=== PATIENT | male | born 1950 | race Caucasian/White ===

== ENCOUNTER 2017-01-30 00:23 | Emergency (ER) | payer MEDICARE, OTHER ==
[~2017-01-30] VITALS: Ht 185.4 cm; Wt 85.8 kg
[2017-01-30 00:28] VITALS: BP 133/82; PULSE 78; RESP 14; TEMP 97.6; O2SAT 94
[2017-01-30 00:41] VITALS: BP 133/82; PULSE 78; RESP 14; TEMP 97.6; O2SAT 95
[2017-01-30] MEDS ORDERED: ATOR10TA15 PO (00:46)
[2017-01-30] MEDS ORDERED: PROP1TAB (00:46)
[2017-01-30 00:47] VITALS: BP 133/82; PULSE 78; RESP 15; TEMP 97.6; O2SAT 95
--- NOTE | 2017-01-30 02:12 | PD ---
HPI Chief Complaint: Skin Problem Time Seen by Provider: 02:06 Travel History International Travel<30 days: No Contact w/Intl Traveler<30days: No Traveled to known affect area: No History of Present Illness HPI The patient is a 66-year-old male that apparently was on doxycycline and severely sunburned his left foot 10 days ago. He noticed that he has some blisters forming on his left foot. PFSH Past Medical History Heart Rhythm Problems: Yes (2011 ablation for A-F-ib) Diminished Hearing: No Tetanus Vaccination: < 5 Years Influenza Vaccination: Yes Past Surgical History Eye Surgery: Yes (Lasik ) Joint Replacement: Yes (Left Shoulder ) Other Surgery: Yes (Right Thumb, Left Toe) Social History Alcohol Use: Yes (every day 3 beers) Tobacco Use: No Substance Use: No Allergies-Medications (Allergen,Severity, Reaction): Coded Allergies: Penicillin (Verified Allergy, Unknown, 01/30/17) Reported Meds & Prescriptions Reported Meds & Active Scripts Active Reported Propecia (Finasteride (Alopecia)) 1 Mg Tab Atorvastatin (Atorvastatin Calcium) 10 Mg Tab 10 Mg PO HS Review of Systems Except as stated in HPI: all other systems reviewed are Neg Physical Exam Narrative GENERAL: Well-nourished, well-developed patient in no apparent distress. His vital signs are normal.. SKIN: Focused skin assessment warm/dry. On the dorsum of the toes there are some reddened areas which presumably have been vesicles that have been rubbed over and broken. There is slight redness on all the toes and slight redness on the plantar surface of the foot but no evidence of infection on the plantar surface of the foot and no blisters on the plantar surface of the foot. HEAD: Normocephalic. EYES: No scleral icterus. No injection or drainage. NECK: Supple, trachea midline. No JVD or lymphadenopathy. CARDIOVASCULAR: Regular rate and rhythm without murmurs, gallops, or rubs. RESPIRATORY: Breath sounds equal bilaterally. No accessory muscle use. GASTROINTESTINAL: Abdomen soft, non-tender, nondistended. MUSCULOSKELETAL: No cyanosis, or edema. BACK: Nontender without obvious deformity. No CVA tenderness. Data Data Last Documented VS Vital Signs Date Time Temp Pulse Resp B/P Pulse Ox O2 Delivery O2 Flow Rate FiO2 01/30/17 00:47 97.6 78 15 133/82 95 Room Air Orders Ibuprofen (Motrin) (01/30/17 02:15) MDM Medical Decision Making Medical Screen Exam Complete: Yes Emergency Medical Condition: Yes Medical Record Reviewed: Yes Differential Diagnosis Photosensitive reaction, sunburn Narrative Course The patient have both was photosensitive reaction along with a sunburn. He is to protect the foot, avoid sun, wear thick white socks and follow-up with a recyclable materials sorter. Shortly after I saw the patient I had to see a critical patient. I had to leave this patient and during this time the patient signed out AMA. 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
[2017-01-30] MEDS ORDERED: IBUPROFEN 800 MG TAB PO ONE (02:15)
== END 2017-01-30 02:13 | disposition left against medical advice (07) ==
LOC: PHED 00:23
DX: L55.1 Sunburn of second degree (principal)
CPT/HCPCS: 99282